=== PATIENT | female | born 1995 | race Caucasian/White ===

== ENCOUNTER → 2023-10-24 11:35 | Outpatient (REF) | payer OTHER, SELFPAY | LOC: PNTC 11:35 | PROVIDERS: ATTENDING PHYSICIAN Obstetrics & Gynecology | DX: R39.192 Position dependent micturition (principal) | CPT/HCPCS: 76815 ==

== ENCOUNTER 2023-10-31 19:08 | Inpatient (IN) | payer OTHER, SELFPAY ==
[2023-10-31 19:21] VITALS: BP 154/94; BMI 28.5
[2023-10-31 20:00] LABS: % Basophils 0.2 % (0-2); % Eosinophils 0.4 % (0-6); % Immature Granulocytes 0.6 % (0-0.5); % Lymphocytes 16.3 % (20.5-51.1); % Monocytes 5.6 % (1.7-9.3); % Neutrophils 76.9 % (42.2-75.2); Absolute Immature Granulocytes 0.1 10^3/uL (0-0.05); Absolute Lymphocytes 1.8 10^3/uL (1.2-3.4); Absolute Monocytes 0.6 10^3/uL (0.1-0.6); Absolute Neutrophils 8.4 10^3/uL (1.4-6.5); Hematocrit 34.3 % (37.0-47.0); Hemoglobin 12.1 g/dL (12.0-16.0); Mean Corp Hgb Conc. 35.3 g/dL (33.0-37.0); Mean Corpuscular Hgb 28.7 pg (27.0-31.0); Mean Corpuscular Volume 81.5 fL (81.0-99.0); Mean Platelet Volume 11.1 fL (7.4-10.4); Nucleated Red Blood Cells % 0 %; Platelet Count 193 10^3/uL (130-400); Red Blood Cell Count 4.21 10^6/uL (4.20-5.40); Red Cell Dist. Width 14.1 % (11.5-14.5); White Blood Cell Count 10.9 10^3/uL (4.8-10.8)
[2023-10-31 20:19] LABS: ALT (SGPT) 18 U/L (0-35); AST (SGOT) 30 U/L (14-36); Albumin 3.5 g/dl (3.5-5.0); Alkaline Phosphatase 265 U/L (38-126); Blood Urea Nitrogen 16 mg/dl (7-17); Calcium 9.5 mg/dl (8.4-10.2); Carbon Dioxide 19 mmol/L (22-30); Chloride 103 mmol/L (98-107); Estimated Creatinine Clearance 117 ml/min; Glucose 114 mg/dl (70-99); Potassium 3.9 mmol/L (3.5-5.1); Sodium 133 mmol/L (135-145); Total Bilirubin 0.3 mg/dl (0.2-1.3); Total Protein 6.3 g/dl (6.3-8.2); eGFR > 60.00
[2023-10-31] MEDS: CYTOTEC 50 MICROGRAM VAG (20:31)
[2023-10-31] MEDS: LR 1000 IV ×2 (20:31→21:30)
--- NOTE | 2023-10-31 21:08 | PTCARENOTE ---
Patient placed on tele monitor. Patient states feeling of skipped beats at times during . Apical regular. NSR on monitor. Denies cp, palpitations, dizziness. BP elevated. LDRP nurse at bedside.
[2023-10-31 21:16] LABS: Protein/creatinine Ratio 1.6; Urine Protein 71 mg/dl
[2023-10-31] MEDS: MAGNESIUM SULFATE 100 IV (21:22)
[2023-10-31] MEDS: TYLENOL 650 MG PO (21:44)
[2023-10-31] MEDS: MAGNESIUM SULFATE 40 GRAM 1000 IV (21:52)
[2023-11-01] MEDS: CYTOTEC 50 MICROGRAM PO ×5 (00:48→19:14)
--- NOTE | 2023-11-01 09:22 | PTCARENOTE ---
Pt's telemetry being monitored in ICU. No cardiac events overnight. Went over to assess pt, she states she did not feel like she had any palpitations last night, does not complain of any pain. Batteries changed in media monitor. Encouraged pt to
call if she had any more palpitations or discomfort.
[2023-11-01] MEDS: LR 1000 IV ×2 (10:15→22:15)
[2023-11-01] MEDS: TYLENOL 650 MG PO ×2 (13:08→20:08)
[2023-11-01] MEDS: MAGNESIUM SULFATE 40 GRAM 1000 IV (16:58)
[2023-11-01] MEDS: PITOCIN 30 UNITS/NSS 500 ML IV (23:46)
[2023-11-02] MEDS: SUBLIMAZE 100 MCG EPIDURAL (03:55)
[2023-11-02] MEDS: FENTANYL/BUPIVACAINE 100 EPIDURAL (03:56)
[2023-11-02] MEDS: ANCEF 10 IV (08:29)
[2023-11-02] MEDS: TYLENOL 1000 MG PO (08:29)
[2023-11-02] MEDS: BICITRA 30 ML PO (08:29)
[2023-11-02] MEDS: ZITHROMAX INFUSION 250 IV (09:00)
[2023-11-02] MEDS: MAGNESIUM SULFATE 40 GRAM 1000 IV (10:47)
[2023-11-02] MEDS: TORADOL 15 MG IV ×2 (11:49→18:01)
[2023-11-02] MEDS: PITOCIN 30 UNITS/NSS 500 ML IV (13:13)
[2023-11-02] MEDS: LR 1000 IV (16:17)
[2023-11-03] MEDS: TORADOL 15 MG IV ×2 (00:07→05:56)
[2023-11-03] MEDS: MAGNESIUM SULFATE 40 GRAM 1000 IV (04:12)
[2023-11-03] MEDS: LR 1000 IV (04:13)
[2023-11-03 06:26] LABS: Hematocrit 30.9 % (37.0-47.0); Hemoglobin 10.4 g/dL (12.0-16.0); Mean Corp Hgb Conc. 33.7 g/dL (33.0-37.0); Mean Corpuscular Hgb 29.1 pg (27.0-31.0); Mean Corpuscular Volume 86.3 fL (81.0-99.0); Mean Platelet Volume 11.1 fL (7.4-10.4); Platelet Count 178 10^3/uL (130-400); Red Blood Cell Count 3.58 10^6/uL (4.20-5.40); Red Cell Dist. Width 14.6 % (11.5-14.5); White Blood Cell Count 19.6 10^3/uL (4.8-10.8)
--- NOTE | 2023-11-03 13:48 | W.PN.ANS.POP ---
Anesthesia Post Operative
- Anesthesia Post Op Note
Vital Signs Stable-See Nursing Note: Yes
Airway Patent: Yes
Adequate Pain Control: Yes
Change in Mental Status: No
Current Postoperative Nausea & Vomiting: No
Anesthesia Complications: No
General Anesthetic Recall: No
Unplanned Admission: No
Post Op Hydration Adequate: Yes
- -
No anesthesia related c/o at time of post op visit. Resting comfortably in NAD.
[2023-11-03] MEDS: SENOKOT-S 1 TABLET PO (14:15)
[2023-11-03] MEDS: MOTRIN 600 MG PO ×2 (14:15→21:12)
[2023-11-03] MEDS: MYLICON 80 MG PO (14:15)
[2023-11-03] MEDS: TYLENOL 650 MG PO ×2 (14:15→21:12)
[2023-11-03] MEDS: PRENATAL PLUS 1 TABLET PO (14:15)
[2023-11-03] MEDS: LR IV (21:11)
[2023-11-04] MEDS: TYLENOL 650 MG PO ×3 (04:47→18:44)
[2023-11-04] MEDS: MOTRIN 600 MG PO ×3 (04:47→18:44)
[2023-11-04] MEDS: PRENATAL PLUS 1 TABLET PO (06:39)
[2023-11-04] MEDS: PROCARDIA XL (EXTENDED RELEASE) 30 MG PO (11:42)
--- NOTE | 2023-11-04 14:26 | CON.CAR ---
Addendum entered and electronically signed by Isak Yancey MD 11/04/23 16:43:
I saw and examined the patient.
The HOG WORKER or PA's note was reviewed and I agree with the note.
Comment: General: Well developed, well nourished in NAD.
Neck: Supple, no JVD, HJR, carotids +2 B/L, no bruits bilaterally.
Heart: Non displaced PMI, RRR, no murmurs, No S3, S4, no rubs.
Lungs: Clear to auscultation bilaterally, no wheeze, rhonchi, rubs bilaterally,
normal expiratory phase.
Extremities: No clubbing, cyanosis or edema bilaterally.
Neuro: Grossly nonfocal, awake, alert and oriented x3.
Angela has no significant past medical history. She was admitted with planned induction on 10/30. Of note she was noted to be hypertensive with elevated protein consistent with preeclampsia. Ectopy was noted on examination by HOME CARE ASSOCIATE. She also
noted some heart racing but had only sinus tachycardia on telemetry. Cardiology is consulted for hypertension. Her palpitations have resolved
Procardia has been started. Will await response. Might consider increasing dose. Another option may be labetalol which would help with palpitations but they have resolved and may cause side effects of fatigue. Her palpitations have resolved.
She will borrow her 's Apple Watch to try to record symptoms. Discussed with patient and in detail
Original Note:
Consultation
Consultation Request
Date/Time Consultation Requested: 11/04/23
Date/Time Consultation Performed: 11/04/23
Requesting Provider: Dr. Cloud
Performing Provider: Dr. Yancey
Reason for Consultation: Palpitations, pre-eclampsia
Medical History
-
History of Present Illness:
Patient had an episode of palpitations while trying to fall asleep and cardiology has been consulted. 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 for
a planned induction on 10/31/23 PM due to being 41 weeks gestation. Patient had HTN and elevated urine protein creatinine ratio at time of admission so she was started on magnesium sulfate in addition to Cytotec and then Pitocin. Patient was started
on tele at that time. Admitting Ob mentioned hearing ectopy on cardiac auscultation and patient mentioned that she occasionally would have palpitations, but nothing sustained and overall she could only remember 2 episodes throughout her .
Tele placed for all of the above and was monitored by ICU nursing. Available saved tele strips reviewed and showed sinus tachycardia. Patient then had changes in heart rate and Pitocin was stopped 11/02/23 and patient proceeded to .
Patient says that she tried closing her eyes today to take a nap and that she started with a racing heart and awoke then felt tearful and she describes having what felt like a panic attack that resolved and has not recurred. Patient has been HTN
following so today she was started on Procardia XL 30 mg daily. She received her 1st dose around noon today and denies feeling lightheaded or dizzy. No h/o HTN prior to this.
PMH:
Palpitations
Pre-eclampsia
s/p 11/02/23
Past Medical History
Past Medical History: Other (in HPI)
Past Surgical History: (11/02/23)
Social History
Tobacco: Non-Smoker
Alcohol: None
Drug: None
Personal:
Living: With Family
Employment: Employed (IMU RN at [employer])
Family History
Family History: CAD (father s/p PCI in his 50s) and Other (no FH pre-eclampsia)
Allergies / Home Medications
Allergy/AdvReac Type Severity Reaction Status Date / Time
Penicillins Allergy Rash Verified 10/31/23 19:31
Medication Instructions Recorded Confirmed Type
prenat.vits,glo,zcr-sylw-quxhn 1 tab PO DAILY AT 0700 10/31/23 10/31/23 History
Review of Systems
-
History Source: Patient and Family ( bedside helping with HPI)
All other systems: Negative unless noted
Physical Exam
Vital Signs
Temp Pulse Resp BP
98.0 F 80 16 153/100
10/31/23 19:21 11/04/23 11:42 10/31/23 19:21 11/04/23 11:42
GEN: NAD. AAOx3
HEENT: EOMI, MMM, wearing glasses
LUNGS: Clear anterolaterally without wheeze
CV: Reg with occasional ectopy, no murmur
ABD: soft, ND
EXT: +2 pitting B/L LE edema
NEURO: Gross non-focal
SKIN: Warm, dry and pink. No rash
Lab Results
11/03/23 05:55
10/31/23 19:55
Impression / Plan
-
PCP: Dr. Maria Esther Mason
Cardiology: None prior to admission
Impression:
Palpitations
Pre-eclampsia
Sinus tachycardia
s/p 11/02/23
Plan:
-Patient had an episode of palpitations while trying to fall asleep and cardiology has been consulted. 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
for a planned induction on 10/31/23 PM due to being 41 weeks gestation. Patient had HTN and elevated urine protein creatinine ratio at time of admission so she was started on magnesium sulfate in addition to Cytotec and then Pitocin. Patient was
started on tele at that time. Admitting Ob mentioned hearing ectopy on cardiac auscultation and patient mentioned that she occasionally would have palpitations, but nothing sustained and overall she could only remember 2 episodes throughout her
. Tele placed for all of the above and was monitored by ICU nursing. Available saved tele strips reviewed by me and showed sinus tachycardia. Patient then had changes in heart rate and Pitocin was stopped 11/02/23 and patient proceeded
to . Patient says that she tried closing her eyes today to take a nap and that she started with a racing heart and awoke then felt tearful and she describes having what felt like a panic attack that resolved and has not recurred. Patient
has been HTN following so today she was started on Procardia XL 30 mg daily. She received her 1st dose around noon today and denies feeling lightheaded or dizzy. No h/o HTN prior to this.
-Patient with pre-eclampsia seen at time of admission that was treated with magnesium sulfate and patient then had for inadequate response to induction and heart rate changes.
-HTN has continued and patient started on Procardia XL 30 mg daily today, no reports of lightheadedness this afternoon.
-Palpitations when trying to nap then tearful and felt like a panic attack. PVCs heard on cardiac auscultation again today, but patient is asymptomatic. Discussed self-monitoring for symptomatic PVCs and if burden increases then could consider
switching to labetalol.
-No significant PVC burden during tele monitoring 10/31/23 until 11/02/23.
-Patient did not follow with cardiology prior to admission. No h/o HTN and was not taking any BP meds. Might benefit from an outpatient cardiology visit 1-2 weeks post-discharge and as BP improves can works towards to reducing and eliminating
Procardia. Could also be followed by PCP or Ob alternatively.
[2023-11-04] MEDS: LEXAPRO 10 MG PO (18:48)
[2023-11-04] MEDS: ZOFRAN ODT (ORALLY DISINTEGRATING) 4 MG PO (20:54)
[2023-11-05] MEDS: TYLENOL 650 MG PO ×2 (00:52→06:47)
[2023-11-05] MEDS: MOTRIN 600 MG PO ×2 (00:53→06:47)
[2023-11-05] MEDS: PROCARDIA XL (EXTENDED RELEASE) 30 MG PO (05:58)
[2023-11-05] MEDS: LEXAPRO 10 MG PO (08:17)
[2023-11-05] MEDS: PRENATAL PLUS 1 TABLET PO (08:17)
--- NOTE | 2023-11-05 12:37 | CM ---
CM met with new parents Angela and Florian
Parents acknowledged listed address and live in home together
Parents have named infant Lydia
Mom plans to breast fed and has a breast pump
Parents report they have all supplies for infant including car seat
Parents plan to use [facility] for peds
CM is available for d/c needs
[2023-11-05 16:36] LABS: Syphilis/T. pallidum Ab Reflex Negative (Negative)
== END 2023-11-05 12:14 | disposition home or self-care (01) | DRG 786 ==
LOC: LDRP 19:08
PROVIDERS: Obstetrics & Gynecology; ADMITTING PHYSICIAN Obstetrics & Gynecology; CONSULT PHYSICIAN Internal Medicine Cardiovascular Disease
PROC: 3E0P7VZ Introduction of Hormone into Female Reproductive, Via Natural or Artificial Opening (ICD-10-PCS; 2023-11-01)
PROC: 3E0DXGC Introduction of Other Therapeutic Substance into Mouth and Pharynx, External Approach (ICD-10-PCS; 2023-11-01)
PROC: 10D00Z1 Extraction of Products of Conception, Low, Open Approach (ICD-10-PCS; 2023-11-02)
PROC: 10907ZC Drainage of Amniotic Fluid, Therapeutic from Products of Conception, Via Natural or Artificial Opening (ICD-10-PCS; 2023-11-02)
DX: O48.0 Post-term pregnancy (principal); O99.42 Diseases of the circulatory system complicating childbirth; O99.354 Diseases of the nervous system complicating childbirth; O14.14 Severe pre-eclampsia complicating childbirth; Z3A.41 41 weeks gestation of pregnancy; Z37.0 Single live birth; I49.3 Ventricular premature depolarization; O76 Abnormality in fetal heart rate and rhythm complicating labor and delivery; F32.A Depression, unspecified; R00.2 Palpitations; R00.0 Tachycardia, unspecified; F41.9 Anxiety disorder, unspecified; O99.344 Other mental disorders complicating childbirth; G43.109 Migraine with aura, not intractable, without status migrainosus; Z82.49 Family history of ischemic heart disease and other diseases of the circulatory system; Z80.8 Family history of malignant neoplasm of other organs or systems; Z87.442 Personal history of urinary calculi; Z88.0 Allergy status to penicillin
CPT/HCPCS: 88307; 36415; 80053; 82570; 84156; 85025; 85027; 86780; 86850; 86900; 86901; 93005

== ENCOUNTER 2023-11-07 20:29 | Observation (INO) | payer OTHER, SELFPAY ==
[2023-11-07 20:46] VITALS: BMI 27.7
[2023-11-07 20:48] VITALS: BP 157/105
[2023-11-07 20:59] LABS: % Basophils 0.3 % (0-2); % Eosinophils 1.3 % (0-6); % Immature Granulocytes 0.4 % (0-0.5); % Lymphocytes 15.9 % (20.5-51.1); % Monocytes 4.8 % (1.7-9.3); % Neutrophils 77.3 % (42.2-75.2); Absolute Eosinophils 0.2 10^3/uL (0-0.7); Absolute Immature Granulocytes 0.1 10^3/uL (0-0.05); Absolute Lymphocytes 2.5 10^3/uL (1.2-3.4); Absolute Monocytes 0.8 10^3/uL (0.1-0.6); Absolute Neutrophils 12.1 10^3/uL (1.4-6.5); Hematocrit 35.3 % (37.0-47.0); Hemoglobin 12.1 g/dL (12.0-16.0); Mean Corp Hgb Conc. 34.3 g/dL (33.0-37.0); Mean Corpuscular Hgb 28.6 pg (27.0-31.0); Mean Corpuscular Volume 83.5 fL (81.0-99.0); Nucleated Red Blood Cells % 0 %; Red Blood Cell Count 4.23 10^6/uL (4.20-5.40); Red Cell Dist. Width 13.9 % (11.5-14.5); White Blood Cell Count 15.7 10^3/uL (4.8-10.8)
[2023-11-07 21:17] LABS: ALT (SGPT) 33 U/L (0-35); AST (SGOT) 31 U/L (14-36); Albumin 3.8 g/dl (3.5-5.0); Alkaline Phosphatase 158 U/L (38-126); Blood Urea Nitrogen 18 mg/dl (7-17); Calcium 9.9 mg/dl (8.4-10.2); Carbon Dioxide 23 mmol/L (22-30); Chloride 104 mmol/L (98-107); Estimated Creatinine Clearance 119 ml/min; Glucose 138 mg/dl (70-99); Potassium 4.3 mmol/L (3.5-5.1); Sodium 138 mmol/L (135-145); Total Bilirubin 0.3 mg/dl (0.2-1.3); Total Protein 6.7 g/dl (6.3-8.2); eGFR > 60.00
[2023-11-07 21:18] LABS: Uric Acid 5.1 mg/dl (2.5-6.2)
[2023-11-07 21:37] LABS: Mean Platelet Volume 9.4 fL (7.4-10.4); Platelet Count 313 10^3/uL (130-400)
== END 2023-11-07 21:58 | disposition home or self-care (01) ==
LOC: LDRP 20:29
PROVIDERS: ADMITTING PHYSICIAN Obstetrics & Gynecology
DX: O14.15 Severe pre-eclampsia, complicating the puerperium (principal); R10.11 Right upper quadrant pain; R51.9 Headache, unspecified
CPT/HCPCS: 80053; 84550; 85025; 86850; 86900; 86901; G0378

== ENCOUNTER → 2024-05-22 14:15 | Outpatient (REF) | payer OTHER, SELFPAY | LOC: HWRAD 14:15 | PROVIDERS: ATTENDING PHYSICIAN Emergency Medicine | DX: E05.90 Thyrotoxicosis, unspecified without thyrotoxic crisis or storm (principal) | CPT/HCPCS: 76536 ==

== ENCOUNTER → 2024-07-30 15:22 | Outpatient (REF) | payer OTHER, SELFPAY | LOC: PNTC 15:22 | PROVIDERS: ATTENDING PHYSICIAN Nurse Practitioner Family | DX: O36.80X0 Pregnancy with inconclusive fetal viability, not applicable or unspecified (principal) | CPT/HCPCS: 76801 ==

== ENCOUNTER → 2024-08-27 15:54 | Outpatient (REF) | payer OTHER, SELFPAY | LOC: PNTC 15:54 | PROVIDERS: ATTENDING PHYSICIAN Advanced Practice Midwife | DX: Z36.0 Encounter for antenatal screening for chromosomal anomalies (principal); Z36.82 Encounter for antenatal screening for nuchal translucency | CPT/HCPCS: 76801; 76813 ==

== ENCOUNTER → 2024-09-17 15:53 | Outpatient (REF) | payer OTHER, SELFPAY | LOC: PNTC 15:53 | PROVIDERS: ATTENDING PHYSICIAN Obstetrics & Gynecology | DX: O34.219 Maternal care for unspecified type scar from previous cesarean delivery (principal); O36.0110 Maternal care for anti-D [Rh] antibodies, first trimester, not applicable or unspecified | CPT/HCPCS: 76805 ==

== ENCOUNTER → 2024-10-20 16:18 | Outpatient (REF) | payer OTHER, SELFPAY | LOC: PNTC 16:18 | PROVIDERS: ATTENDING PHYSICIAN Nurse Practitioner Family | DX: O99.119 Other diseases of the blood and blood-forming organs and certain disorders involving the immune mechanism complicating pregnancy, unspecified trimester (principal) | CPT/HCPCS: 76811 ==

== ENCOUNTER → 2024-11-17 16:22 | Outpatient (REF) | payer OTHER, SELFPAY | LOC: PNTC 16:22 | PROVIDERS: ATTENDING PHYSICIAN Student in an Organized Health Care Education/Training Program | DX: M32.9 Systemic lupus erythematosus, unspecified (principal); M05.80 Other rheumatoid arthritis with rheumatoid factor of unspecified site | CPT/HCPCS: 76816 ==

== ENCOUNTER → 2024-12-16 15:58 | Outpatient (REF) | payer OTHER, SELFPAY | LOC: PNTC 15:58 | PROVIDERS: ATTENDING PHYSICIAN Obstetrics & Gynecology | DX: D89.9 Disorder involving the immune mechanism, unspecified (principal); O09.93 Supervision of high risk pregnancy, unspecified, third trimester; O35.5XX0 Maternal care for (suspected) damage to fetus by drugs, not applicable or unspecified; R76.0 Raised antibody titer; R76.8 Other specified abnormal immunological findings in serum | CPT/HCPCS: 76816 ==

== ENCOUNTER → 2025-01-13 16:21 | Outpatient (REF) | payer OTHER, SELFPAY | LOC: PNTC 16:21 | PROVIDERS: ATTENDING PHYSICIAN Obstetrics & Gynecology | DX: O09.93 Supervision of high risk pregnancy, unspecified, third trimester (principal); O35.5XX0 Maternal care for (suspected) damage to fetus by drugs, not applicable or unspecified; R76.0 Raised antibody titer; R76.8 Other specified abnormal immunological findings in serum; D89.9 Disorder involving the immune mechanism, unspecified | CPT/HCPCS: 76816 ==

== ENCOUNTER → 2025-02-10 16:19 | Outpatient (REF) | payer OTHER, SELFPAY | LOC: PNTC 16:19 | PROVIDERS: ATTENDING PHYSICIAN Obstetrics & Gynecology | DX: D89.9 Disorder involving the immune mechanism, unspecified (principal); R76.0 Raised antibody titer; R76.8 Other specified abnormal immunological findings in serum; O35.5XX0 Maternal care for (suspected) damage to fetus by drugs, not applicable or unspecified; O09.93 Supervision of high risk pregnancy, unspecified, third trimester | CPT/HCPCS: 76816 ==

== ENCOUNTER 2025-02-26 05:29 | Inpatient (IN) | payer OTHER, SELFPAY ==
[2025-02-26 05:33] VITALS: BMI 28.5
[2025-02-26 05:46] VITALS: BP 123/85
[2025-02-26 06:55] LABS: Hematocrit 35.7 % (37.0-47.0); Hemoglobin 12.3 g/dL (12.0-16.0); Mean Corp Hgb Conc. 34.5 g/dL (33.0-37.0); Mean Corpuscular Volume 84.4 fL (81.0-99.0); Platelet Count 170 10^3/uL (130-400); Red Cell Dist. Width 13.7 % (11.5-14.5)
[2025-02-26 06:55] LABS: ALT (SGPT) 12 U/L (0-35); AST (SGOT) 21 U/L (14-36); Albumin 3.4 g/dl (3.5-5.0); Alkaline Phosphatase 188 U/L (38-126); Blood Urea Nitrogen 12 mg/dl (7-17); Calcium 8.6 mg/dl (8.4-10.2); Carbon Dioxide 19 mmol/L (22-30); Chloride 110 mmol/L (98-107); Estimated Creatinine Clearance > 125 ml/min; Glucose 78 mg/dl (70-99); Potassium 4.1 mmol/L (3.5-5.1); Sodium 135 mmol/L (135-145); Total Protein 6.1 g/dl (6.3-8.2); eGFR > 60.00
[2025-02-26] MEDS: ANCEF 10 IV (07:11)
[2025-02-26] MEDS: TYLENOL 975 MG PO (07:11)
[2025-02-26] MEDS: LR 1000 IV (07:11)
[2025-02-26] MEDS: BICITRA 30 ML PO (07:11)
[2025-02-26] MEDS: TORADOL 15 MG IV ×2 (14:07→20:32)
[2025-02-26] MEDS: PITOCIN 30 UNITS/NSS 500 ML 240 IV (14:21)
[2025-02-26] MEDS: COLACE 100 MG PO (20:32)
[2025-02-26] MEDS: TYLENOL 650 MG PO (20:45)
[2025-02-26] MEDS: LEXAPRO 20 MG PO (21:51)
[2025-02-26] MEDS: PRENATAL PLUS 1 TABLET PO (21:51)
[2025-02-27] MEDS: TORADOL 15 MG IV ×2 (02:15→07:47)
[2025-02-27] MEDS: TYLENOL 650 MG PO ×4 (02:16→18:41)
[2025-02-27 05:46] LABS: Hematocrit 34.1 % (37.0-47.0); Hemoglobin 11.5 g/dL (12.0-16.0); Mean Corp Hgb Conc. 33.7 g/dL (33.0-37.0); Mean Corpuscular Volume 86.8 fL (81.0-99.0); Platelet Count 145 10^3/uL (130-400); Red Cell Dist. Width 13.9 % (11.5-14.5)
[2025-02-27] MEDS: COLACE 100 MG PO ×2 (07:47→20:14)
[2025-02-27] MEDS: MYLICON 80 MG PO ×3 (08:16→18:41)
--- NOTE | 2025-02-27 13:59 | W.PN.ANS.POP ---
Anesthesia Post Operative
- Anesthesia Post Op Note
Vital Signs Stable-See Nursing Note: Yes
Airway Patent: Yes
Adequate Pain Control: Yes
Change in Mental Status: No
Current Postoperative Nausea & Vomiting: No
Anesthesia Complications: No
General Anesthetic Recall: No
Unplanned Admission: No
Post Op Hydration Adequate: Yes
[2025-02-27] MEDS: MOTRIN 600 MG PO ×2 (15:26→22:02)
[2025-02-27] MEDS: LEXAPRO 20 MG PO (22:02)
[2025-02-27] MEDS: PRENATAL PLUS 1 TABLET PO (22:02)
[2025-02-28] MEDS: MYLICON 80 MG PO ×2 (00:32→10:39)
[2025-02-28] MEDS: TYLENOL 650 MG PO ×3 (00:32→10:39)
[2025-02-28] MEDS: MOTRIN 600 MG PO ×2 (04:40→10:39)
[2025-02-28] MEDS: COLACE 100 MG PO (08:00)
--- NOTE | 2025-03-01 21:56 | W.DS.TRANS ---
DC Summary - Emergency Medical Technician
-
Discharge Instructions:
Discharge Diagnosis/Procedures delivered 39.1 wks; repeat low
transverse section
Diet Regular
Activity No strenuous activity
Driving Restrictions No driving for 2 weeks
Bathing Restrictions OK to Shower
Instructions:
Stand-Alone Forms: [facility] Delivery
Changes to Home Medications: No
Discharge Medications:
DC Medications w/original date entered in [facility]
escitalopram oxalate 20 mg tablet (Lexapro) 20 mg PO DAILY 02/26/25
prenat.vits,glo,sle-uspq-dabtz 1 tab PO DAILY 02/26/25
acetaminophen 325 mg tablet 650 mg (2 x 325 mg) PO Q4HPRN PRN mild pain #0 tabs 02/27/25
calcium carbonate (Calcium Antacid) 400 mg (2 x 200 mg calcium (500 mg)) PO Q6HPRN PRN indigestion #0 tabs 02/27/25
ibuprofen 600 mg tablet 600 mg PO Q6HPRN PRN cramps #0 tabs 02/27/25
Home Medication Changes
Pending Results: No
Total time spent discharging patient (in min): 20
[2025-03-02 15:21] LABS: Syphilis/T. pallidum Ab Reflex Negative (Negative)
== END 2025-02-28 13:07 | disposition home or self-care (01) | DRG 788 ==
LOC: LDRP 05:29
PROVIDERS: Obstetrics & Gynecology; ADMITTING PHYSICIAN Obstetrics & Gynecology; FAMILY PHYSICIAN Emergency Medicine
PROC: 10D00Z1 Extraction of Products of Conception, Low, Open Approach (ICD-10-PCS; 2025-02-26)
DX: O34.211 Maternal care for low transverse scar from previous cesarean delivery (principal); O99.284 Endocrine, nutritional and metabolic diseases complicating childbirth; E03.9 Hypothyroidism, unspecified; O99.891 Other specified diseases and conditions complicating pregnancy; M35.9 Systemic involvement of connective tissue, unspecified; Z37.0 Single live birth; Z3A.39 39 weeks gestation of pregnancy
CPT/HCPCS: 36415; 80053; 82570; 84156; 85027; 86780; 86850; 86900; 86901

== ENCOUNTER 2025-03-02 15:30 | Observation (INO) | payer OTHER, SELFPAY ==
[2025-03-02 16:16] LABS: Hematocrit 32.3 % (37.0-47.0); Hemoglobin 10.8 g/dL (12.0-16.0); Mean Corp Hgb Conc. 33.4 g/dL (33.0-37.0); Mean Corpuscular Volume 86.6 fL (81.0-99.0); Nucleated Red Blood Cells % 0 %; Platelet Count 225 10^3/uL (130-400); Red Cell Dist. Width 13.9 % (11.5-14.5)
[2025-03-02 16:17] VITALS: BMI 28.7
[2025-03-02 16:19] VITALS: BP 119/82
[2025-03-02 16:28] LABS: ALT (SGPT) 40 U/L (0-35); AST (SGOT) 38 U/L (14-36); Albumin 3.4 g/dl (3.5-5.0); Alkaline Phosphatase 129 U/L (38-126); Blood Urea Nitrogen 15 mg/dl (7-17); Calcium 9.4 mg/dl (8.4-10.2); Carbon Dioxide 24 mmol/L (22-30); Chloride 111 mmol/L (98-107); Estimated Creatinine Clearance > 125 ml/min; Glucose 91 mg/dl (70-99); Potassium 4.2 mmol/L (3.5-5.1); Sodium 138 mmol/L (135-145); Total Protein 6.0 g/dl (6.3-8.2); eGFR > 60.00
== END 2025-03-02 17:05 | disposition home or self-care (01) ==
LOC: LDRP 15:30
PROVIDERS: ADMITTING PHYSICIAN Obstetrics & Gynecology
DX: O99.355 Diseases of the nervous system complicating the puerperium (principal); G43.109 Migraine with aura, not intractable, without status migrainosus
CPT/HCPCS: 80053; 82570; 84156; 85025; G0378

== ENCOUNTER → 2025-07-27 09:45 | Outpatient (REF) | payer OTHER, SELFPAY | LOC: HWRAD 09:45 | PROVIDERS: ATTENDING PHYSICIAN Nurse Practitioner Family | DX: R10.9 Unspecified abdominal pain (principal) | CPT/HCPCS: 76705 ==